=== PATIENT | male | born 2000 | race Two or more races ===

== ENCOUNTER 2025-04-17 20:53 | Emergency (ER) | payer OTHER ==
[~2025-04-17] VITALS: Ht 172.7 cm; Wt 77.0 kg
[2025-04-17 21:02] VITALS: O2SAT 98
[2025-04-17 21:37] LABS: BASOPHILS % 0.3 % (0.0-2.0); EOSINOPHILS % 0.4 % (0.0-5.0); HEMATOCRIT. 47.6 % (42.0-52.0); HEMOGLOBIN. 16.0 g/dL (14.0-18.0); LYMPHOCYTES % 8.3 % (20.0-50.0); MEAN PLATELET VOLUME 7.7 fl (7.4-10.4); MONOCYTES % 7.0 % (2.0-8.0); NEUTROPHILS % 84.0 % (40.0-76.0); PLATELET 191 x1000/uL (130-400); RED BLOOD CELL COUNT 5.26 mill/uL (4.7-6.1); RED CELL DISTRIBUTION WIDTH 12.7 % (11.6-14.6)
[2025-04-17] MEDS: ONDANSETRON HCL 4MG/2ML INJ IV ONE (21:37)
[2025-04-17 21:51] LABS: CREATININE 1.2 mg/dL (0.6-1.3); ETHANOL BLOOD < 10 mg/dL (<10); UREA NITROGEN BLOOD 18 mg/dL (9-23)
[2025-04-17] MEDS ORDERED: ONDA4TAB50 MT (22:47)
[2025-04-17 22:57] VITALS: BP 129/78; PULSE 88; RESP 18; TEMP 36.6; O2SAT 99
== END 2025-04-17 22:57 | disposition home or self-care (01) ==
LOC: ER 20:53
DX: T40.711A Poisoning by cannabis, accidental (unintentional), initial encounter (principal); F12.90 Cannabis use, unspecified, uncomplicated; X58.XXXA Exposure to other specified factors, initial encounter; Y93.89 Activity, other specified; Y92.89 Other specified places as the place of occurrence of the external cause; Y99.8 Other external cause status
CPT/HCPCS: 80048; 80320; 85025; 36415; 96374; 99283; J2405; Z7610; G0480